=== PATIENT | female | born 1970 | race Caucasian/White ===

== ENCOUNTER 2020-02-17 07:43 | Day surgery (SDC) | payer OTHER ==
[~2020-02-17] VITALS: Ht 157.5 cm; Wt 80.9 kg
[~2020-02-17 07:43] MED LIST: ACET325 PO; ALBU90OI INH; ALBU90OI6 INH; BENZ.5; BENZ1; BENZ1 PO; Bactrim 400-801 EACH PO; Bactrim Ds Tab1 EACH PO; CEPH500 PO; CLIN300 PO; CLON.2 PO; CLON.5; CLON1; CRUTCH3 USE; CYCL10 PO; Cleocin HCl150 MG PO; Cleocin HCl300 MG PO; DIAZ10; DIAZ10 PO; DIPH50 PO; DIPHENHYDRAMINE 25 MG; DRON2.5; DULO30 PO; ESZO3 PO; FLUSAL2505 INH; FLUV50; FLUVOXAMINE 100 MG; HALO1; HALO5; HALO5 PO; HYDACE5 PO; HYDR1TAB94 PO; IBUP800 PO; LITH300CA; LITH450ER; LITHIUM; Lithium Carbon450 MG PO; MEDICAL MARIJUANA; METO50; METO50 PO; NAPR500 PO; NAPR550 PO; Naprosyn500 MG PO; OXYACE5T PO; OXYC5; OXYC5 PO; PERM5TC TOP; PROM25 PO; Peridex480 ML SS; QUET100; QUET200; QUET25; RISP2; RXCYCL10 PO; RXHYDACE PO; RXNAPNA550 PO; SUBOXONE 8 MG-1 EACH; SUMA6I; TRAM50; TRAZ50; VALD10 PO; ZIPR80; ZOLP5 PO; ZYPREXA; [UNRECOGNIZED DRUG - OTHER]
--- NOTE | 2020-02-17 08:08 | NUR ---
History, Chart, Medications and Allergies reviewed before start of procedure. Patient confirms NPO status and agrees with scheduled surgery. Patient states colon prep results clear. Patient States Post-Procedure ride home has been arranged.
--- NOTE | 2020-02-17 08:34 | NUR ---
02/17/20 0834 Herman Torres PATIENT DETERMINED TO BE ASA APPROPRIATE FOR PROPOFOL SEDATION PRIOR TO START OF PROCEDURE BY DR. John Garcia Placed3-LEAD EKG REVIEWED WITH PHYSICIAN PRIOR TO START OF PROCEDURE.Patient to ENDO 1History, Chart, Medications and Allergies reviewed before start of procedure.MONITOR INTACT WITH CONTINUOUS PULSE OXIMETRY AND INTERMITTENT BP.O2 VIA N/C INTACT THROUGHOUT SEDATION/PROCEDURE.
--- NOTE | 2020-02-17 09:32 | NUR ---
Discharge instructions reviewed with patient. Patient verbalizes understanding. Copy given to patient to take home. Discharged via wheelchair to private car for ride home.
== END 2020-02-17 09:35 | disposition home or self-care (01) ==
LOC: ORSCMMR 07:43 → ORD 09:00 → ORSCMMR 09:35
PROVIDERS: Internal Medicine Gastroenterology
PROC: 0DBM8ZX Excision of Descending Colon, Via Natural or Artificial Opening Endoscopic, Diagnostic (ICD-10-PCS; principal; 2020-02-17 09:00)
PROC: 0D758ZZ Dilation of Esophagus, Via Natural or Artificial Opening Endoscopic (ICD-10-PCS; principal; 2020-02-17 09:00)
PROC: 0DBK8ZX Excision of Ascending Colon, Via Natural or Artificial Opening Endoscopic, Diagnostic (ICD-10-PCS; principal; 2020-02-17 09:00)
PROC: 0DBN8ZX Excision of Sigmoid Colon, Via Natural or Artificial Opening Endoscopic, Diagnostic (ICD-10-PCS; principal; 2020-02-17 09:00)
PROC: 0DB48ZX Excision of Esophagogastric Junction, Via Natural or Artificial Opening Endoscopic, Diagnostic (ICD-10-PCS; principal; 2020-02-17 09:00)
PROC: 0DB78ZX Excision of Stomach, Pylorus, Via Natural or Artificial Opening Endoscopic, Diagnostic (ICD-10-PCS; principal; 2020-02-17 09:00)
DX: R13.14 Dysphagia, pharyngoesophageal phase (principal); Z12.11 Encounter for screening for malignant neoplasm of colon; K21.9 Gastro-esophageal reflux disease without esophagitis; D12.4 Benign neoplasm of descending colon; D12.2 Benign neoplasm of ascending colon; D12.5 Benign neoplasm of sigmoid colon; J44.9 Chronic obstructive pulmonary disease, unspecified; F17.210 Nicotine dependence, cigarettes, uncomplicated; F31.9 Bipolar disorder, unspecified; Z79.899 Other long term (current) drug therapy
CPT/HCPCS: 88305; 88342; C1726; J2704; J7120

== ENCOUNTER → 2022-04-11 | Outpatient (CLI) | payer OTHER | END | disposition home or self-care (01) | LOC: LAB 16:25 → LAB SHORT 16:25 | DX: R35.0 Frequency of micturition (principal) | CPT/HCPCS: 87077; 87086; 87186 ==

== ENCOUNTER → 2022-06-18 | Outpatient (CLI) | payer OTHER ==
[2022-06-18 14:11] LABS: Creatinine Urine 40.4 mg/dL (27.00-270.00); Microalbumin, Urine Quant. 52.5 mg/L (0.000-20.000); Protein, Urine Quantitative 16.8 mg/dL (0.0-11.9)
== END | disposition home or self-care (01) ==
LOC: LAB SHORT 12:34
PROVIDERS: Internal Medicine Nephrology
DX: N18.2 Chronic kidney disease, stage 2 (mild) (principal); D63.1 Anemia in chronic kidney disease; N25.81 Secondary hyperparathyroidism of renal origin; E55.9 Vitamin D deficiency, unspecified; E78.00 Pure hypercholesterolemia, unspecified; D50.9 Iron deficiency anemia, unspecified; D51.8 Other vitamin B12 deficiency anemias; D52.8 Other folate deficiency anemias; R76.9 Abnormal immunological finding in serum, unspecified; R94.5 Abnormal results of liver function studies; R94.6 Abnormal results of thyroid function studies
CPT/HCPCS: 81050; 82043; 82570; 84156

== ENCOUNTER 2023-09-30 05:37 | Emergency (ER) | payer OTHER ==
[~2023-09-30] VITALS: Ht 157.5 cm; Wt 90.7 kg
[2023-09-30] MEDS ORDERED: NS 1,000 ML IV SCH (06:40)
[2023-09-30] MEDS ORDERED: Ondansetron HCl 2 MG / ML 2ML Vial IV ONE (06:40)
[2023-09-30] MEDS ORDERED: Ketorolac Tromethamine 30mg Vial IV ONE (06:40)
[2023-09-30 07:04] LABS: BASOPHILS ABSOLUTE AUTO 0.05 K/mm3 (0.00-0.23); BASOPHILS PERCENT AUTO 0 % (0-2); EOSINOPHILS ABSOLUTE AUTO 0.04 K/mm3 (0.00-0.68); EOSINOPHILS PERCENT AUTO 0 % (0-6); Hematocrit 54.5 % (33.0-51.0); Hemoglobin 18.4 g/dL (11.5-16.0); IMMATURE GRAN ABSOLUTE AUTO 0.06 K/mm3 (0.00-0.10); IMMATURE GRAN PERCENT AUTO 0 % (0-1); LYMPHOCYTES ABSOLUTE AUTO 2.92 K/mm3 (0.84-5.20); LYMPHOCYTES PERCENT AUTO 19 % (21-46); MONOCYTES ABSOLUTE AUTO 0.74 K/mm3 (0.16-1.47); MONOCYTES PERCENT AUTO 5 % (4-13); Mean Corpuscular HGB 30.3 pg (26.0-34.0); Mean Corpuscular HGB Conc 33.8 g/dL (31.5-36.5); Mean Corpuscular Volume 90 fL (80-100); Mean Platelet Volume 10.4 fL (9.1-12.4); NEUTROPHILS ABSOLUTE AUTO 11.27 K/mm3 (1.96-9.15); NEUTROPHILS PERCENT AUTO 75 % (41-73); Platelet Count 266 K/mm3 (150-400); RDW Coefficient Variation 14.7 % (11.7-14.2); RDW Standard Deviation 48.9 fL (35.1-46.3); Red Blood Cell Count 6.08 M/mm3 (3.80-5.20); White Blood Cell Count 15.08 K/mm3 (4.00-11.30)
[2023-09-30 07:25] LABS: Albumin, Blood 4.3 g/dL (3.4-5.0); Bilirubin, Total 0.7 mg/dL (0.1-1.0); Bun/Creatinine Ratio 19.5 (12.0-20.0); Calcium, Blood 10.2 mg/dL (8.5-10.1); Creatinine, Blood 0.97 mg/dL (0.40-1.00); Globulin, Blood 4.4 g/dL (2.2-4.0); Potassium, Blood 4.7 mmol/L (3.5-5.5); Total Protein, Blood 8.7 g/dL (6.4-8.2)
[2023-09-30 09:00] VITALS: BP 135/95
[2023-09-30] MEDS ORDERED: Promethazine HCl 25 MG Tab PO ONE (09:15)
[2023-09-30] MEDS ORDERED: PROM25 PO (09:15)
[2023-09-30] MEDS ORDERED: BISA5EC PO (09:15)
== END 2023-09-30 09:32 | disposition home or self-care (01) ==
LOC: ER 05:37
PROVIDERS: Emergency Medicine
DX: K52.9 Noninfective gastroenteritis and colitis, unspecified (principal); F20.9 Schizophrenia, unspecified; F31.9 Bipolar disorder, unspecified; I10 Essential (primary) hypertension; F17.200 Nicotine dependence, unspecified, uncomplicated; Z88.0 Allergy status to penicillin; Z88.8 Allergy status to other drugs, medicaments and biological substances
CPT/HCPCS: 74177; 80053; 83690; 85025; A9270; J1885; J2405; J7030; Q9967

== ENCOUNTER 2024-02-25 11:30 | Observation (INO) | payer OTHER ==
[~2024-02-25] VITALS: Ht 160 cm; Wt 82.1 kg
[~2024-02-25 11:30] MED LIST changes: +BISA5EC PO; +SUBOXONE 8 MG-1 EACH SL
[2024-02-25 12:34] LABS: Source, Urine Clean Catch
[2024-02-25 12:41] LABS: Appearance, Urine Clear (Clear); Bilirubin, Urine Neg (Neg); Blood, Urine Neg (Neg); Color, Urine Yellow (P-Yellow); Glucose Qualitative, Urine Neg (Neg); Ketones, Urine Neg (Neg); Leukocyte Esterase, Urine 1+ (Neg); Nitrite, Urine Neg (Neg); Protein, Urine 2+ (Neg); Urobilinogen, Urine NORM (Normal)
[2024-02-25] MEDS ORDERED: Lactated Ringer's 1,000 ML IV ONE (12:50)
[2024-02-25 12:51] LABS: BASOPHILS ABSOLUTE AUTO 0.02 K/mm3 (0.00-0.23); BASOPHILS PERCENT AUTO 0 % (0-2); EOSINOPHILS ABSOLUTE AUTO 0.02 K/mm3 (0.00-0.68); EOSINOPHILS PERCENT AUTO 0 % (0-6); Hematocrit 51.3 % (33.0-51.0); Hemoglobin 17.5 g/dL (11.5-16.0); IMMATURE GRAN ABSOLUTE AUTO 0.03 K/mm3 (0.00-0.10); IMMATURE GRAN PERCENT AUTO 0 % (0-1); LYMPHOCYTES ABSOLUTE AUTO 3.47 K/mm3 (0.84-5.20); LYMPHOCYTES PERCENT AUTO 29 % (21-46); MONOCYTES ABSOLUTE AUTO 0.48 K/mm3 (0.16-1.47); MONOCYTES PERCENT AUTO 4 % (4-13); Mean Corpuscular HGB 30.6 pg (26.0-34.0); Mean Corpuscular HGB Conc 34.1 g/dL (31.5-36.5); Mean Corpuscular Volume 90 fL (80-100); Mean Platelet Volume 10.6 fL (9.1-12.4); NEUTROPHILS ABSOLUTE AUTO 7.92 K/mm3 (1.96-9.15); NEUTROPHILS PERCENT AUTO 66 % (41-73); Platelet Count 209 K/mm3 (150-400); RDW Coefficient Variation 15.6 % (11.7-14.2); Red Blood Cell Count 5.72 M/mm3 (3.80-5.20); White Blood Cell Count 11.94 K/mm3 (4.00-11.30)
[2024-02-25 12:55] LABS: Bacteria Few /hpf; Red Blood Cells, Urine 0-2 /hpf (0-2); Squamous Epithelial Cells Few /hpf (Few)
[2024-02-25] MEDS ORDERED: Droperidol 5 mg/2 ml Vial IV ONE (12:55)
[2024-02-25 13:11] LABS: Albumin, Blood 4.3 g/dL (3.4-5.0); Albumin/Globulin Ratio 1.1 (0.8-1.8); Bilirubin, Total 0.5 mg/dL (0.1-1.0); Bun/Creatinine Ratio 11.6 (12.0-20.0); Calcium, Blood 9.8 mg/dL (8.5-10.1); Creatinine, Blood 0.95 mg/dL (0.40-1.00); Potassium, Blood 4.2 mmol/L (3.5-5.5); Total Protein, Blood 8.3 g/dL (6.4-8.2)
[2024-02-25] MEDS ORDERED: Ondansetron HCl 2 MG / ML 2ML Vial IV ONE ×2 (13:35→14:45)
[2024-02-25] MEDS ORDERED: CefTRIAXone Sodium 1,000 MG in NS 100 ML IV SCH (14:45)
[2024-02-25] MEDS ORDERED: NS 1,000 ML IV SCH (14:45)
[2024-02-25] MEDS ORDERED: FentaNYL Citrate 50 MCG/ML 2 ML Injection IV PRN ×2 (15:15→17:10)
[2024-02-25] MEDS ORDERED: Ondansetron HCl 2 MG / ML 2ML Vial IV PRN (15:25)
[2024-02-25] MEDS ORDERED: BUSPIRONE HCL10 M6 PO (18:00)
[2024-02-25] MEDS ORDERED: Prinivil10 MG PO (18:01)
[2024-02-25] MEDS ORDERED: LAMOTRIGINE100 M1 PO (18:02)
[2024-02-25] MEDS ORDERED: TRAZ100 PO (18:02)
[2024-02-25] MEDS ORDERED: OMEP20ER PO (18:02)
[2024-02-25 18:25] VITALS: BP 151/90
[2024-02-25 19:55] VITALS: BP 151/93
[2024-02-25] MEDS ORDERED: Lactobacil 2-S.Thermo-Bifido 1 1 Cap PO SCH (21:00)
[2024-02-25] MEDS ORDERED: Nicotine 14 MG PATCH TOP ONE (21:05)
[2024-02-26] VITALS (14 sets, daily range): BP systolic 134–158; BP diastolic 76–102
--- NOTE | 2024-02-26 04:01 | NUR ---
FRENCH INSTRUCTOR SUMMARY VSS. ALERT AND ORIENTED. WAS ON CL LIQ FIRST PART OF THE SHIFT BUT NPO AFTER MIDNIGHT FOR POSSIBLE PROCEDURE LATER TODAY. MEDICATED FOR N/V - SEE MAR FOR DETAILS WHEN. UP AD BEN AND ABLE TO REPOSITION SELF IN BED WITHOUT ASSIST. HAS BEEN RESTING QUIETLY WITH OCCASIONAL INTERRUPTION UP TO BATHROOM. CALL LIGHT IN REACH, RAILS UP X 2 AND BED IN LOW POSITION FOR SAFETY. WILL CONTINUE TO MONITOR
[2024-02-26 05:44] LABS: BASOPHILS ABSOLUTE AUTO 0.03 K/mm3 (0.00-0.23); BASOPHILS PERCENT AUTO 0 % (0-2); EOSINOPHILS ABSOLUTE AUTO 0.09 K/mm3 (0.00-0.68); EOSINOPHILS PERCENT AUTO 1 % (0-6); Hemoglobin 16.5 g/dL (11.5-16.0); IMMATURE GRAN ABSOLUTE AUTO 0.02 K/mm3 (0.00-0.10); IMMATURE GRAN PERCENT AUTO 0 % (0-1); LYMPHOCYTES PERCENT AUTO 29 % (21-46); MONOCYTES ABSOLUTE AUTO 0.69 K/mm3 (0.16-1.47); MONOCYTES PERCENT AUTO 6 % (4-13); Mean Corpuscular HGB 30.6 pg (26.0-34.0); Mean Corpuscular HGB Conc 33.7 g/dL (31.5-36.5); Mean Corpuscular Volume 91 fL (80-100); Mean Platelet Volume 10.9 fL (9.1-12.4); NEUTROPHILS ABSOLUTE AUTO 7.87 K/mm3 (1.96-9.15); NEUTROPHILS PERCENT AUTO 65 % (41-73); Platelet Count 174 K/mm3 (150-400); RDW Coefficient Variation 15.3 % (11.7-14.2); RDW Standard Deviation 50.4 fL (35.1-46.3)
[2024-02-26 06:58] LABS: Albumin, Blood 3.6 g/dL (3.4-5.0); Albumin/Globulin Ratio 1.1 (0.8-1.8); Bilirubin, Total 0.5 mg/dL (0.1-1.0); Bun/Creatinine Ratio 11.1 (12.0-20.0); Calcium, Blood 9.3 mg/dL (8.5-10.1); Creatinine, Blood 0.9 mg/dL (0.40-1.00); Globulin, Blood 3.4 g/dL (2.2-4.0); Potassium, Blood 4.5 mmol/L (3.5-5.5)
[2024-02-26] MEDS ORDERED: Lactated Ringer's 1,000 ML IV SCH (07:45)
[2024-02-26] MEDS ORDERED: Nicotine 14 MG PATCH TOP SCH (09:00)
[2024-02-26] MEDS ORDERED: Buprenorphine HCL/Naloxone HCL 8MG-2MG Tab SL SCH (09:00)
[2024-02-26] MEDS ORDERED: Bupivacaine 0.5% Inj 10 ML Vial ONE (09:14)
[2024-02-26] MEDS ORDERED: propofoL 20 ML IV ONE (09:16)
[2024-02-26] MEDS ORDERED: FentaNYL Citrate 50 MCG/ML 5 ML Injection ONE ×2 (09:16→09:58)
[2024-02-26] MEDS ORDERED: Rocuronium Bromide 10 MG/ML 5ML Injection IV ONE ×2 (09:16→09:17)
[2024-02-26] MEDS ORDERED: Ondansetron HCl 2 MG / ML 2ML Vial ONE ×2 (09:17→11:23)
[2024-02-26] MEDS ORDERED: Ketorolac Tromethamine 30mg Vial ONE (09:17)
[2024-02-26] MEDS ORDERED: Dexamethasone Sod Phos 10 MG/ML 1ML VIAL ONE (09:17)
[2024-02-26] MEDS ORDERED: Labetalol HCL 5 MG/ML 4ML Injection (Single Dose) ONE (09:47)
[2024-02-26] MEDS ORDERED: HydrALAZINE HCl 20 MG / ML 1ML Vial ONE (10:07)
[2024-02-26] MEDS ORDERED: Sugammadex Sodium 200 MG/2ML SDV (100 MG/ML) ONE (10:43)
[2024-02-26] MEDS ORDERED: HYDROcodone 5-APAP 325 TAB PO PRN (11:05)
[2024-02-26] MEDS ORDERED: HYDROmorphone HCl/Pf 1MG SYR ONE (11:23)
[2024-02-26] MEDS ORDERED: Nicoderm Cq1 EAC1 TOP (15:03)
[2024-02-26] MEDS ORDERED: HYDR1TAB94 PO (15:04)
--- NOTE | 2024-02-26 15:29 | NUR ---
DISCHARGED WITH DC INSTRUCTIONS. PT TOLERATING CLEARS AND HAD 1/2 TURKEY SAND AND APPLESAUCE. PAIN CONTROLLED WITH NORCO 5MG. AMBULATING AROUND ROOM. FEELS READY FOR DC. HERE, WHEELCHAIR OUT TO PRIVATE CAR FOR DC. HARD SCRIPT FOR NORCO #[id number]. BELONGINGS SENT WITH PT.
== END 2024-02-26 15:23 | disposition home or self-care (01) ==
LOC: ER 11:30 → MEDS 11:31 → ER 17:45 → MEDS 17:51 → ENPENDDIS 02-26 12:54 → MEDS 02-26 15:23
PROVIDERS: Student in an Organized Health Care Education/Training Program; Surgery; ADMIT Family Medicine
PROC: 0FT44ZZ Resection of Gallbladder, Percutaneous Endoscopic Approach (ICD-10-PCS; principal; 2024-02-26 09:00)
PROC: BF03YZZ Plain Radiography of Gallbladder and Bile Ducts using Other Contrast (ICD-10-PCS; principal; 2024-02-26 09:00)
DX: K80.12 Calculus of gallbladder with acute and chronic cholecystitis without obstruction (principal); D72.829 Elevated white blood cell count, unspecified; I10 Essential (primary) hypertension; F17.210 Nicotine dependence, cigarettes, uncomplicated; Z86.59 Personal history of other mental and behavioral disorders; Z88.0 Allergy status to penicillin; Z88.8 Allergy status to other drugs, medicaments and biological substances
CPT/HCPCS: 36415; 74300; 76705; 80053; 81001; 83690; 85025; 87086; 88304; 93005; 93010; 96361; 96365; 96375; 96376; 99285-25; A9270; C1894; G0378; J0360; J0696; J1100; J1170; J1790; J1885; J2405; J2704; J3010; J7030; J7120

== ENCOUNTER → 2024-04-08 | Outpatient (CLI) | payer OTHER ==
[~2024-04-08] MED LIST changes: +BUSPIRONE HCL10 M6 PO; +LAMOTRIGINE100 M1 PO; +Nicoderm Cq1 EAC1 TOP; +OMEP20ER PO; +Prinivil10 MG PO; +TRAZ100 PO
[2024-04-08 20:06] LABS: Albumin, Blood 4.2 g/dL (3.4-5.0); Albumin/Globulin Ratio 1.1 (0.8-1.8); Bilirubin, Total 0.3 mg/dL (0.1-1.0); Bun/Creatinine Ratio 14.4 (12.0-20.0); Calcium, Blood 10.1 mg/dL (8.5-10.1); Creatinine, Blood 0.97 mg/dL (0.40-1.00); Globulin, Blood 3.8 g/dL (2.2-4.0); Potassium, Blood 4.1 mmol/L (3.5-5.5)
== END ==
LOC: LAB 17:20 → LAB SHORT 17:20
PROVIDERS: Nurse Practitioner Family
DX: R42 Dizziness and giddiness (principal)
CPT/HCPCS: 80053; 82306; 82607; 82746

== ENCOUNTER → 2025-04-27 | Outpatient (CLI) | payer OTHER ==
[2025-04-27 21:18] LABS: Candida glabrata-krusei, PCR NOT DETECTED (NOT DETECT)
[2025-04-27 21:58] LABS: Bacterial Vaginosis PCR Positive (NEGATIVE); Candida Group, PCR DETECTED (NOT DETECT)
== END ==
LOC: LAB SHORT 16:30 → LAB 16:30
PROVIDERS: Nurse Practitioner Family
DX: R30.0 Dysuria (principal)
CPT/HCPCS: 81515; 87077; 87086; 87186